=== PATIENT | female | born 1945 | race Caucasian/White ===

== ENCOUNTER → 2023-12-11 10:28 | Outpatient (REF) | payer OTHER, SELFPAY | LOC: MRI 3T 10:28 | PROVIDERS: ATTENDING PHYSICIAN Physician Assistant; FAMILY PHYSICIAN Physician Assistant Medical | DX: M54.50 Low back pain, unspecified (principal) | CPT/HCPCS: 72148 ==

== ENCOUNTER 2024-09-13 15:12 | Emergency (ER) | payer OTHER, SELFPAY ==
[2024-09-13 15:16] VITALS: BP 185/93
--- NOTE | 2024-09-13 15:32 | ED.GENMED ---
ED Provider Triage
<Mikey Mcneal PA-C - Last Filed: 09/13/24 15:33>
-
Patient seen by provider in Triage?: Seen in Triage
Attestation: A medical screening examination has been initiated by a qualified medical provider. Based on the assessment performed at this time, it has been determined that an emergent medical condition may exist and the patient has been informed
that further medical evaluation and possible additional diagnostic testing may be needed.
HPI: 71-year-old female presents to the emergency department due to acute on chronic low back pain. She follows with [facility] orthopedics and underwent a epidural steroid injection in late May. She had been doing well however over the past
week has had increasing low back discomfort. Denies any lower extremity paresthesias or radiculopathy. Has had 2 episodes of urinary incontinence in the past week and thus was sent to the ED by her PCP out of concern for possible cauda equina.
Denies saddle anesthesias. Is able to control the flow of urine for the most part throughout the past several days
GENERAL: Alert , in no apparent distress
EYE: No visual abnormalities.
NECK: Trachea midline
ENT: No visible abnormalities.
LUNGS: No acute respiratory distress
NEUROLOGICAL: Alert and oriented
SKIN: Skin intact. No visible changes.
MUSCULOSKELETAL: Moving extremities normally
PSYCH: Normal and appropriate interaction.
This is a medical evaluation conducted in person to initiate diagnostic evaluation and provide initial therapeutics. Please see further documentation by the treating clinician.
History of Present Illness
<Mikey Mcneal PA-C - Last Filed: 09/13/24 15:33>
General
Chief Complaint: Back Pain
Time Seen by Provider: 09/13/24 15:47
<Porfirio Burnett PA-C - Last Filed: 09/13/24 22:05>
General
Source: patient
History of Present Illness
History of Present Illness:
79-year-old female with past medical history of hypertension, previous DVT, hypothyroidism presenting to the emergency department from [facility] orthopedics where she follows with back specialist there who had concern for possible cauda equina
given patient has known spinal stenosis and over the last few days she has had increasing urinary incontinence. Patient states that her pain is not any than normal but the urinary incontinence is different for her to the point where she is now
wearing depends. Patient normally ambulates with a cane. She received a epidural injection this last May which was her last treatment for her back pain. Denies any focal weakness or numbness, fevers, current saddle anesthesias, traumatic
injuries or any other concerns.
Past History
<Mikey Mcneal PA-C - Last Filed: 09/13/24 15:33>
Past History
ED Past Medical History: Other (Diverticulosis)
ED Past Surgical History: None
Social History
Tobacco: Non-smoker
Alcohol: None
<Porfirio Burnett PA-C - Last Filed: 09/13/24 22:05>
Past History
ED Past Medical History: HTN, Hypothyroidism and Other (DVT)
ED Past Surgical History: Cholecystectomy and Gynecological
Social History
Drug: None
Personal:
Living: with family
Review of Systems
<Porfirio Burnett PA-C - Last Filed: 09/13/24 22:05>
Review of Systems
All Other Systems: ROS reviewed and negative except as documented in HPI and ROS
Phy Exam
<Porfirio Burnett PA-C - Last Filed: 09/13/24 22:05>
Physical Exam
Physical Exam:
GENERAL: Alert , in no apparent distress
HEAD: Normocephalic atraumatic
EYE: clear conjunctiva b/l
NECK: Supple
ENT: o/p clr, mmm.
ABDOMEN: Soft, without focal tenderness, no r/g, no cvat
BACK: Limited range of motion however patient reports that this is her baseline, no focal tenderness, no midline bony tenderness, no rashes
NEUROLOGICAL: Alert and oriented, no focal neuro deficits. Patellar deep tendon reflexes intact and equal bilaterally, sensation grossly intact and equal to light touch bilateral lower extremities
SKIN: Warm and dry, skin intact.
MUSCULOSKELETAL: No edema, well perfused. EHL intact bilaterally
PSYCH: Normal and appropriate interaction.
Scores
<Porfirio Burnett PA-C - Last Filed: 09/13/24 22:05>
Heart Failure Risk
Heart Failure Risk Score: Not Applicable
Heart Score for Chest Pain Patients
STEMI patient?: Not applicable
Withdrawal Assessment of Alcohol
Withdrawal Assessment Completed?: Not applicable
Course
<Mikey Mcneal PA-C - Last Filed: 09/13/24 15:33>
Orders/Labs/Results
Orders:
Orders
09/13/24 15:35
Complete Blood Count/No Diff Urgent
Comprehensive Metabolic Panel Urgent
09/13/24 16:04
Bladder Scan- Treatment ONCE
09/13/24 16:23
MR Lumbar Without Contrast Urgent
Comment:
Reason For Exam: urinary incontinence, worsening back pain
Recent pill cam endoscopy?: No
09/13/24 16:43
Urinalysis Reflex To Culture Urgent
Date Specimen was Collected: 09/13/24
Time Specimen was Collected: 16:40
Urine Microscopic Reflex Cult Urgent
Urine Culture Urgent
JACQUI Source: U
Specimen Description:
Date Specimen was Collected: 09/13/24
Time Specimen was Collected: 16:40
Abnormal Lab Results
09/13/24 09/13/24
15:35 16:43
WBC 4.7 L 10^3/uL
(4.8-10.8)
MCHC 32.5 L g/dL
(33.0-37.0)
MPV 10.9 H fL
(7.4-10.4)
BUN 28 H mg/dl
(7-17)
Glucose 100 H mg/dl
(70-99)
Leukocyte Esterase Rfl 2+ A
(Negative)
Urine WBC (Reflex) 11-15 A /HPF
(0-5)
Urine Bacteria (Reflex) Few A
(Negative)
09/13/24 15:35
09/13/24 15:35
Vital Signs
Initial and Last Documented VS:
Initial Vital Signs
Temp Pulse Resp BP Pulse Ox
98 F 74 20 185/93 100
09/13/24 15:16 09/13/24 15:16 09/13/24 15:16 09/13/24 15:16 09/13/24 15:16
Last Documented Vital Signs
Temp Pulse Resp BP Pulse Ox
98 F 74 20 185/93 100
09/13/24 15:16 09/13/24 15:16 09/13/24 15:16 09/13/24 15:16 09/13/24 15:16
<Porfirio Burnett PA-C - Last Filed: 09/13/24 22:05>
Orders/Labs/Results
Orders:
Orders
09/13/24 15:35
Complete Blood Count/No Diff Urgent
Comprehensive Metabolic Panel Urgent
09/13/24 16:04
Bladder Scan- Treatment ONCE
09/13/24 16:23
MR Lumbar Without Contrast Urgent
Comment:
Reason For Exam: urinary incontinence, worsening back pain
Recent pill cam endoscopy?: No
09/13/24 16:43
Urinalysis Reflex To Culture Urgent
Date Specimen was Collected: 09/13/24
Time Specimen was Collected: 16:40
Urine Microscopic Reflex Cult Urgent
Urine Culture Urgent
JACQUI Source: U
Specimen Description:
Date Specimen was Collected: 09/13/24
Time Specimen was Collected: 16:40
Abnormal Lab Results
09/13/24 09/13/24
15:35 16:43
WBC 4.7 L 10^3/uL
(4.8-10.8)
MCHC 32.5 L g/dL
(33.0-37.0)
MPV 10.9 H fL
(7.4-10.4)
BUN 28 H mg/dl
(7-17)
Glucose 100 H mg/dl
(70-99)
Leukocyte Esterase Rfl 2+ A
(Negative)
Urine WBC (Reflex) 11-15 A /HPF
(0-5)
Urine Bacteria (Reflex) Few A
(Negative)
09/13/24 15:35
09/13/24 15:35
Vital Signs
Initial and Last Documented VS:
Initial Vital Signs
Temp Pulse Resp BP Pulse Ox
98 F 74 20 185/93 100
09/13/24 15:16 09/13/24 15:16 09/13/24 15:16 09/13/24 15:16 09/13/24 15:16
Last Documented Vital Signs
Temp Pulse Resp BP Pulse Ox
98 F 74 20 185/93 100
09/13/24 15:16 09/13/24 15:16 09/13/24 15:16 09/13/24 15:16 09/13/24 15:16
<Porfirio Burnett PA-C - Last Filed: 09/13/24 22:05>
MDM/Problems Addressed
Differential Diagnosis Includes:
Worsening spinal stenosis, disc herniation, nerve impingement, cauda equina, no symptoms to suggest infectious etiology, urinary tract infection, hyponatremia
MDM/Problems Addressed:
79-year-old female presenting the ER at the request of her orthopedic provider for urinary incontinence in the setting of acute on chronic back pain. Pain is not any different than her usual. No fevers, no new traumas. Consulted with radiology
who is agreeable to patient getting MRI through the ER. Will check labs, urinalysis and postvoid residual. Patient is otherwise hemodynamically stable.
<Porfirio Burnett PA-C - Last Filed: 09/13/24 22:05>
*Radiology
Radiology exam reviewed: radiology read reviewed
*Pulse Oximetry
Patient hypoxic: no
*Critical Care Note
Total Time (30-74mins, 75-104mins- exclusive of procedures): Not Applicable
Data Reviewed
Review of Other/Old Records Reveals: Labs, Records and Radiology Studies
<Porfirio Burnett PA-C - Last Filed: 09/13/24 22:05>
Comment
Comment:
Patient's postvoid residual is 10.
Patient Management
Escalation/DeEscalation of care consider admission/obs:
MRI with multilevel degenerative changes. No signs of cauda equina. Patient is stable for discharge home and continued outpatient management. Urine findings were noted. There is 16-20 squamous cells and few bacteria signifying contamination but
a urine culture was sent
ED Attending Note
<Mikey Mcneal PA-C - Last Filed: 09/13/24 15:33>
-
Portions of this chart may have been created with voice recognition software.� Occasional wrong word or��sound alike� substitutions may have occurred due to the inherent limitations of voice recognition software.
Discharge Plan
Departure
Patient Disposition: Home (Routine Discharge)
Date of Disposition: 09/13/24
Time of Disposition: 22:00
Patient with high blood pressure during this ER visit?: Yes
Discharge Problem:
Low back pain
Instructions: Low Back Pain (DC)
Prescriptions:
No Action
metoprolol succinate 100 MG tablet extended release 24 hr
100 mg PO DAILY
levothyroxine 25 MCG tablet
25 mcg PO DAILY
methenamine hippurate 1 GRAM tablet
0.25 g PO DAILY
Patient Comments:
10/16/2020: Pt states they take 1/4 tab, instead of 1gram BID like prescribed
triamcinolone acetonide [Nasacort] 10.8 ML aerosol,spray
1 spray intranasal DAILYPRN PRN (Reason: seasonal allergies)
hydrochlorothiazide 25 MG tablet
25 mg PO DAILY
Lactobacillus acidophilus [Acidophilus] 1 CAP capsule
1 cap PO DAILY
rivaroxaban [Xarelto] 20 MG tablet
20 mg PO DAILY
biotin 1,000 MCG tablet,chewable
1,000 mcg PO DAILY
acetaminophen 325 MG tablet
650 mg PO Q4HPRN PRN (Reason: mild pain/HONG/temp> 100.4F) 0RF
metronidazole 500 MG tablet
500 mg PO TID Qty: 30 0RF
levofloxacin [Levaquin] 500 MG tablet
500 mg PO 10 Qty: 10 0RF
Referrals:
Elise Huerta PA-C [Family Provider] -
Interventions
Interventions:
*Risk Screen - Suicide Last Done: 09/13/24 15:16
*General Assessment Last Done: 09/13/24 15:16
*Neglect/Abuse Screening Last Done: 09/13/24 15:16
ED-Musculoskeletal Assessment Last Done: 09/13/24 16:53
Discharge Date and Time
Print Language: TOGOLESE
[2024-09-13 16:16] LABS: Hematocrit 38.8 % (37.0-47.0); Hemoglobin 12.6 g/dL (12.0-16.0); Mean Corp Hgb Conc. 32.5 g/dL (33.0-37.0); Mean Corpuscular Hgb 29.1 pg (27.0-31.0); Mean Corpuscular Volume 89.6 fL (81.0-99.0); Mean Platelet Volume 10.9 fL (7.4-10.4); Platelet Count 261 10^3/uL (130-400); Red Blood Cell Count 4.33 10^6/uL (4.20-5.40); Red Cell Dist. Width 12.7 % (11.5-14.5); White Blood Cell Count 4.7 10^3/uL (4.8-10.8)
[2024-09-13 16:29] LABS: ALT (SGPT) 16 U/L (0-35); AST (SGOT) 23 U/L (14-36); Albumin 4.4 g/dl (3.5-5.0); Alkaline Phosphatase 79 U/L (38-126); Blood Urea Nitrogen 28 mg/dl (7-17); Calcium 8.9 mg/dl (8.4-10.2); Carbon Dioxide 28 mmol/L (22-30); Chloride 101 mmol/L (98-107); Glucose 100 mg/dl (70-99); Potassium 4.2 mmol/L (3.5-5.1); Sodium 136 mmol/L (135-145); Total Bilirubin 0.5 mg/dl (0.2-1.3); Total Protein 6.5 g/dl (6.3-8.2); eGFR > 60.00
[2024-09-13 17:06] LABS: Urine Albumin Negative (Neg - Trace); Urine Bilirubin Negative (Negative); Urine Character Clear (Clear); Urine Color Yellow; Urine Glucose Negative (Negative); Urine Ketone Negative (Negative); Urine Leukocyte 2+ (Negative); Urine Nitrite Negative (Negative); Urine Occult Blood Negative (Negative); Urine Urobilinogen Negative (Neg - 1+)
[2024-09-13 17:42] LABS: Urine Squamous Cell 16-20 /LPF (Few)
[2024-09-13 17:43] LABS: Urine Bacteria Few (Negative); Urine Red Blood Cell 0-2 /HPF (0-2)
== END 2024-09-13 22:21 | disposition home or self-care (01) ==
LOC: EMR 15:12
PROVIDERS: Physician Assistant; EMERGENCY PHYSICIAN Student in an Organized Health Care Education/Training Program; FAMILY PHYSICIAN Physician Assistant Medical
DX: M54.50 Low back pain, unspecified (principal); I10 Essential (primary) hypertension; E03.9 Hypothyroidism, unspecified
CPT/HCPCS: 99284; 51798; 72148; 80053; 81003; 81015; 85027; 87077; 87086

== ENCOUNTER → 2024-12-11 09:43 | Outpatient (REF) | payer OTHER, SELFPAY | LOC: PAVMRI 09:43 | PROVIDERS: ATTENDING PHYSICIAN Physician Assistant; FAMILY PHYSICIAN Physician Assistant Medical | DX: M79.18 Myalgia, other site (principal); M54.16 Radiculopathy, lumbar region; M53.3 Sacrococcygeal disorders, not elsewhere classified; R10.31 Right lower quadrant pain | CPT/HCPCS: 72195 ==

== ENCOUNTER → 2024-12-20 07:56 | Outpatient (REF) | payer OTHER, SELFPAY ==
[2024-12-20 08:59] LABS: % Basophils 0.8 % (0-2); % Eosinophils 1.4 % (0-6); % Immature Granulocytes 0.2 % (0-0.5); % Lymphocytes 35.8 % (20.5-51.1); % Monocytes 9.4 % (1.7-9.3); % Neutrophils 52.4 % (42.2-75.2); Absolute Eosinophils 0.1 10^3/uL (0-0.7); Absolute Lymphocytes 1.8 10^3/uL (1.2-3.4); Absolute Monocytes 0.5 10^3/uL (0.1-0.6); Absolute Neutrophils 2.6 10^3/uL (1.4-6.5); Hematocrit 38.9 % (37.0-47.0); Hemoglobin 12.7 g/dL (12.0-16.0); Mean Corp Hgb Conc. 32.6 g/dL (33.0-37.0); Mean Corpuscular Hgb 28.3 pg (27.0-31.0); Mean Corpuscular Volume 86.6 fL (81.0-99.0); Mean Platelet Volume 10.9 fL (7.4-10.4); Nucleated Red Blood Cells % 0 %; Platelet Count 251 10^3/uL (130-400); Red Blood Cell Count 4.49 10^6/uL (4.20-5.40); Red Cell Dist. Width 13.3 % (11.5-14.5); White Blood Cell Count 4.9 10^3/uL (4.8-10.8)
[2024-12-20 10:10] LABS: Blood Urea Nitrogen 19 mg/dl (7-17); Calcium 9.3 mg/dl (8.4-10.2); Carbon Dioxide 26 mmol/L (22-30); Chloride 109 mmol/L (98-107); Glucose 89 mg/dl (70-99); Sodium 141 mmol/L (135-145); eGFR > 60.00
== END ==
LOC: REG 07:56
PROVIDERS: ATTENDING PHYSICIAN Orthopaedic Surgery
DX: Z01.818 Encounter for other preprocedural examination (principal)
CPT/HCPCS: 36415; 80048; 85025; 93005

== ENCOUNTER → 2025-01-10 10:38 | Outpatient (REF) | payer OTHER, SELFPAY | LOC: RCS 10:38 | PROVIDERS: ATTENDING PHYSICIAN Internal Medicine Cardiovascular Disease; FAMILY PHYSICIAN Physician Assistant Medical | DX: R94.31 Abnormal electrocardiogram [ECG] [EKG] (principal) | CPT/HCPCS: 93306 ==